=== PATIENT | male | born 2000 | race Caucasian/White ===

== ENCOUNTER 2022-10-18 13:35 | Emergency (ER) | payer MEDICAID ==
[~2022-10-18] VITALS: Ht 177.8 cm; Wt 90.7 kg
[2022-10-18 13:41] VITALS: BP_SYST 110; PULSE 77; RESP 18; TEMP 96.8; O2SAT 98
[2022-10-18] MEDS ORDERED: BUPIVACAINE /PF 0.25% 30 ML VIAL INJ ONE (15:45)
[2022-10-18] MEDS ORDERED: PENICILLIN V POTASSIUM 250 MG TABLET PO ONE (15:45)
[2022-10-18] MEDS ORDERED: ACETAMINOPHEN 500 MG TABLET PO ONE (15:45)
[2022-10-18] MEDS ORDERED: LIDOCAINE VISCOUS 2%, 15 ML UDC MM ONE (15:45)
[2022-10-18] MEDS ORDERED: KETOROLAC TROMETHAMINE 15 MG VIAL IM ONE (15:45)
[2022-10-18] MEDS ORDERED: PENI250T2 PO (16:21)
[2022-10-18 16:33] VITALS: BP_SYST 110; PULSE 77; RESP 18; TEMP 96.8; O2SAT 98
== END 2022-10-18 16:33 | disposition home or self-care (01) ==
LOC: SED 13:35
DX: K08.89 Other specified disorders of teeth and supporting structures (principal); H92.02 Otalgia, left ear; R51.9 Headache, unspecified; Z79.899 Other long term (current) drug therapy
CPT/HCPCS: 99284; 64400; 96372; J3490; J1885

== ENCOUNTER 2023-01-17 16:40 | Emergency (ER) | payer MEDICAID ==
[~2023-01-17] VITALS: Ht 177.8 cm; Wt 95.7 kg
[2023-01-17 16:40] VITALS: BP_SYST 120; PULSE 114; RESP 19; TEMP 97.8; O2SAT 97
[~2023-01-17 16:40] MED LIST: PENI250T2 PO
[2023-01-17 16:50] VITALS: BP_SYST 120; PULSE 130; RESP 18; TEMP 98.4; O2SAT 94
== END 2023-01-17 16:58 | disposition left against medical advice (07) ==
LOC: SED 16:40
DX: F15.10 Other stimulant abuse, uncomplicated (principal); F10.129 Alcohol abuse with intoxication, unspecified; Z79.899 Other long term (current) drug therapy; Y90.9 Presence of alcohol in blood, level not specified
CPT/HCPCS: 99283

== ENCOUNTER 2023-01-21 00:30 | Emergency (ER) | payer MEDICAID ==
[~2023-01-21] VITALS: Ht 177.8 cm; Wt 90.7 kg
[2023-01-21 00:42] VITALS: BP_SYST 107; PULSE 89; RESP 18; TEMP 96.9; O2SAT 100
[2023-01-21] MEDS ORDERED: FAMOTIDINE 20 MG TABLET ONE (01:25)
[2023-01-21] MEDS ORDERED: ESOM40CA53 PO (01:25)
[2023-01-21] MEDS ORDERED: FAMOTIDINE 20 MG TABLET PO ONE (01:30)
== END 2023-01-21 01:32 | disposition home or self-care (01) ==
LOC: SED 00:30
DX: K21.9 Gastro-esophageal reflux disease without esophagitis (principal); F10.20 Alcohol dependence, uncomplicated; R10.13 Epigastric pain; Z79.899 Other long term (current) drug therapy; Y90.6 Blood alcohol level of 120-199 mg/100 ml
CPT/HCPCS: 99282